=== PATIENT | male | born 1995 | race African-American/Black ===

== ENCOUNTER 2019-08-04 14:56 | Inpatient (IN) ==
[2019-08-04] MEDS ORDERED: ONDANSETRON 4 MG/2 ML VIAL IV STA (15:24)
[2019-08-04] MEDS ORDERED: MORPHINE 4 MG/1 ML VIAL IV STA (15:24)
[2019-08-04] MEDS ORDERED: METOCLOPRAMIDE 10 MG/2 ML VIAL IV STA (15:24)
[2019-08-04] MEDS ORDERED: PANTOPRAZOLE 40 MG VIAL IV STA (15:24)
[2019-08-04] MEDS ORDERED: SODIUM CHLORIDE 0.9% 1,000 ML IV STA (15:24)
[2019-08-04 15:39] LABS: Apearance,Urine CLEAR (Clear); Bilirubin,Urine Negative (Negative); Blood, Urine Small mg/dL (Negative); Glucose,Urine (UA) Negative (Negative); Ketones,Urine 80 mg/dL (Negative); Mucus,Urine Many /LPF (Occasional); Nitrite,Urine Negative (Negative); Protein,Urine 30 MG/DL; RBC,Urine 1 /HPF (0-4); Squamous Epithelial Cell,Urine Occasional /HPF (0-10); Urine Color Yellow (Yellow); Urine Specific Gravity 1.025 (1.001-1.035); WBC,Urine 2 /HPF (0-6)
[2019-08-04 15:41] LABS: Basophils % 0.1 % (0.0-0.8); Eosinophils % 0.1 % (0.00-10.9); Hematocrit 48.6 VOL% (42.0-52.0); Hemoglobin 15.9 GM/DL (14.0-18.0); Immature Granulocytes % 0.5 %; Immature Granulocytes Absolute 0.07 #; Lymphocytes # 1.4 10*3/uL (1.4-4.0); Lymphocytes % 9.4 % (21.2-54.2); Mean Corpuscular HGB Conc 32.7 GM/DL (32-36); Mean Platelet Volume 9.8 FL (9.6-12.0); Monocytes % 5.8 % (1.7-12.7); Neutrophils % 84.1 % (38.7-73.9); Platelet Count 240 T/CUMM (130-400); Red Blood Count 5.34 MC/CUMM (3.8-5.5); Red Cell Distribution Width 12.2 % (9.3-17.3); White Blood Count 14.8 T/CUMM (4-12)
[2019-08-04 15:41] LABS: Barbiturates Screen,Urine Negative (Negative); Benzodiazepines Screen,Urine Negative (Negative); Cannabinoid Screen,Urine Positive (Negative); Opiate Screen,Urine Negative (Negative); Phencyclidine Screen,Urine Negative (Negative)
[2019-08-04 16:13] LABS: Albumin 4.6 G/DL (3.4-5.0); Calcium 9.6 MG/DL (8.5-10.1); Osmolality,Calculated 275.7 MOS/KG (273-304); Total Protein 8.7 G/DL (6.4-8.3)
[2019-08-04] MEDS ORDERED: PIPERACILLIN/TAZOBACTAM 3,375 MG in SODIUM CHLORIDE 0.9% 100 ML IV STA (16:52)
[2019-08-04] MEDS ORDERED: MORPHINE 4 MG/1 ML VIAL IV PRN (18:09)
[2019-08-04] MEDS ORDERED: ONDANSETRON 4 MG/2 ML VIAL IV PRN (18:10)
[2019-08-04] MEDS: MORPHINE 4 MG/1 ML VIAL IV PRN (21:19)
[2019-08-04] MEDS: SODIUM CHLORIDE 0.9% 1,000 ML IV SCH (21:20)
[2019-08-05] MEDS: SODIUM CHLORIDE 0.9% 1,000 ML IV SCH ×7 (00:12→21:31)
[2019-08-05] MEDS: MORPHINE 4 MG/1 ML VIAL IV PRN ×5 (02:45→22:07)
[2019-08-05 06:07] LABS: Basophils % 0.3 % (0.0-0.8); Eosinophils # 0.2 10*3/uL (0.0-0.87); Eosinophils % 1.8 % (0.00-10.9); Hematocrit 38.3 VOL% (42.0-52.0); Hemoglobin 12.1 GM/DL (14.0-18.0); Immature Granulocytes % 0.3 %; Immature Granulocytes Absolute 0.03 #; Mean Corpuscular HGB Conc 31.6 GM/DL (32-36); Mean Corpuscular Volume 93.9 FL (87-102); Mean Platelet Volume 10.1 FL (9.6-12.0); Monocytes % 8.9 % (1.7-12.7); Neutrophils % 59.7 % (38.7-73.9); Platelet Count 176 T/CUMM (130-400); Red Blood Count 4.08 MC/CUMM (3.8-5.5); Red Cell Distribution Width 12.2 % (9.3-17.3); White Blood Count 10.3 T/CUMM (4-12)
[2019-08-05 06:37] LABS: Albumin 3.2 G/DL (3.4-5.0); Bilirubin,Total 0.8 MG/DL (0.2-1.0); Calcium 8.2 MG/DL (8.5-10.1); Osmolality,Calculated 272.8 MOS/KG (273-304); Total Protein 6.5 G/DL (6.4-8.3)
[2019-08-05] MEDS ORDERED: PANTOPRAZOLE 40 MG VIAL IV SCH (09:00)
[2019-08-06] MEDS: MORPHINE 4 MG/1 ML VIAL IV PRN (03:09)
[2019-08-06] MEDS: SODIUM CHLORIDE 0.9% 1,000 ML IV SCH ×2 (03:09→05:18)
[2019-08-06 05:10] LABS: Basophils % 0.4 % (0.0-0.8); Eosinophils # 0.2 10*3/uL (0.0-0.87); Eosinophils % 2.2 % (0.00-10.9); Hemoglobin 10.8 GM/DL (14.0-18.0); Immature Granulocytes % 0.3 %; Immature Granulocytes Absolute 0.02 #; Lymphocytes # 2.9 10*3/uL (1.4-4.0); Mean Corpuscular HGB Conc 31.8 GM/DL (32-36); Mean Corpuscular Volume 95.5 FL (87-102); Mean Platelet Volume 9.8 FL (9.6-12.0); Monocytes % 6.7 % (1.7-12.7); Neutrophils % 47.4 % (38.7-73.9); Platelet Count 144 T/CUMM (130-400); Red Blood Count 3.56 MC/CUMM (3.8-5.5); White Blood Count 6.8 T/CUMM (4-12)
[2019-08-06 05:33] LABS: Calcium 7.8 MG/DL (8.5-10.1); Osmolality,Calculated 277.3 MOS/KG (273-304)
[2019-08-06 09:01] VITALS: BP 130/89
== END 2019-08-06 14:52 | disposition home or self-care (01) | DRG 440 ==
LOC: N.ED 14:56 → N.EDINP 19:42 → N.3E 20:26
PROVIDERS: ADMIT Internal Medicine; ATTEND Internal Medicine

== ENCOUNTER 2019-09-29 10:33 | Inpatient (IN) ==
[2019-09-29] MEDS ORDERED: SODIUM CHLORIDE 0.9% 1,000 ML IV STA (10:48)
[2019-09-29] MEDS ORDERED: HYDROmorphone 2 MG/1 ML VIAL IV STA (10:48)
[2019-09-29] MEDS ORDERED: ONDANSETRON 4 MG/2 ML VIAL IV STA (10:48)
[2019-09-29 11:48] LABS: Basophils % 0.2 % (0.0-0.8); Eosinophils # 0.1 10*3/uL (0.0-0.87); Eosinophils % 0.3 % (0.00-10.9); Hematocrit 46.4 VOL% (42.0-52.0); Hemoglobin 15.6 GM/DL (14.0-18.0); Immature Granulocytes % 0.3 %; Immature Granulocytes Absolute 0.05 #; Lymphocytes # 2.2 10*3/uL (1.4-4.0); Mean Corpuscular HGB Conc 33.6 GM/DL (32-36); Mean Corpuscular Volume 88.7 FL (87-102); Monocytes % 6.3 % (1.7-12.7); Neutrophils % 77.9 % (38.7-73.9); Platelet Count 224 T/CUMM (130-400); Red Blood Count 5.23 MC/CUMM (3.8-5.5); Red Cell Distribution Width 12.2 % (9.3-17.3); White Blood Count 14.6 T/CUMM (4-12)
[2019-09-29 12:13] LABS: Albumin 4.2 G/DL (3.4-5.0); Bilirubin,Total 0.7 MG/DL (0.2-1.0); Calcium 9.8 MG/DL (8.5-10.1); Osmolality,Calculated 269.2 MOS/KG (273-304); Total Protein 8.8 G/DL (6.4-8.3)
[2019-09-29 12:42] LABS: Barbiturates Screen,Urine Negative (Negative); Benzodiazepines Screen,Urine Negative (Negative); Cannabinoid Screen,Urine Positive (Negative); Opiate Screen,Urine Positive (Negative); Phencyclidine Screen,Urine Negative (Negative)
[2019-09-29] MEDS ORDERED: NICOTINE 21 MG/24 HR PATCH TRANSDERM PRN (13:44)
[2019-09-29] MEDS ORDERED: DEXTROSE 10% 250 ML BAG IV PRN (13:44)
[2019-09-29] MEDS ORDERED: ONDANSETRON 4 MG/2 ML VIAL IV PRN (13:44)
[2019-09-29] MEDS ORDERED: GLUCAGON 1 MG VIAL IM PRN (13:44)
[2019-09-29] MEDS: MORPHINE 4 MG/1 ML VIAL IV PRN ×2 (18:12→22:54)
[2019-09-29] MEDS: LACTATED RINGERS 1,000 ML IV SCH (18:12)
[2019-09-29] MEDS: FAMOTIDINE 20 MG/2 ML VIAL IV SCH (22:57)
[2019-09-30] MEDS: LACTATED RINGERS 1,000 ML IV SCH ×3 (02:40→18:43)
[2019-09-30] MEDS: MORPHINE 4 MG/1 ML VIAL IV PRN ×5 (04:34→23:01)
[2019-09-30 04:50] LABS: Basophils % 0.3 % (0.0-0.8); Eosinophils # 0.2 10*3/uL (0.0-0.87); Eosinophils % 1.6 % (0.00-10.9); Hematocrit 43.6 VOL% (42.0-52.0); Immature Granulocytes % 0.2 %; Immature Granulocytes Absolute 0.02 #; Lymphocytes # 2.6 10*3/uL (1.4-4.0); Lymphocytes % 27.2 % (21.2-54.2); Mean Corpuscular HGB Conc 32.1 GM/DL (32-36); Mean Platelet Volume 9.9 FL (9.6-12.0); Monocytes % 7.7 % (1.7-12.7); Platelet Count 190 T/CUMM (130-400); Red Blood Count 4.69 MC/CUMM (3.8-5.5); Red Cell Distribution Width 12.3 % (9.3-17.3); White Blood Count 9.5 T/CUMM (4-12)
[2019-09-30 05:14] LABS: Calcium 9.4 MG/DL (8.5-10.1); Osmolality,Calculated 267.2 MOS/KG (273-304)
[2019-09-30] MEDS: FAMOTIDINE 20 MG/2 ML VIAL IV SCH ×2 (09:09→21:20)
[2019-09-30] MEDS: THIAMINE 200 MG/2 ML VIAL IV SCH (09:09)
[2019-10-01] MEDS: LACTATED RINGERS 1,000 ML IV SCH ×3 (02:55→20:00)
[2019-10-01] MEDS: MORPHINE 4 MG/1 ML VIAL IV PRN ×3 (03:48→13:31)
[2019-10-01] MEDS: THIAMINE 200 MG/2 ML VIAL IV SCH (09:18)
[2019-10-01] MEDS: FAMOTIDINE 20 MG/2 ML VIAL IV SCH ×2 (09:18→22:05)
[2019-10-01] MEDS ORDERED: MORPHINE 4 MG/1 ML VIAL IV PRN (11:06)
[2019-10-01] MEDS ORDERED: LORazepam 2 MG/1 ML VIAL IV PRN (12:04)
[2019-10-02] MEDS: MORPHINE 4 MG/1 ML VIAL IV PRN ×3 (00:40→07:35)
[2019-10-02] MEDS: LACTATED RINGERS 1,000 ML IV SCH ×2 (04:00→12:45)
[2019-10-02 06:24] LABS: Basophils % 0.4 % (0.0-0.8); Eosinophils # 0.1 10*3/uL (0.0-0.87); Hematocrit 36.5 VOL% (42.0-52.0); Hemoglobin 12.1 GM/DL (14.0-18.0); Immature Granulocytes % 0.3 %; Immature Granulocytes Absolute 0.02 #; Lymphocytes # 1.8 10*3/uL (1.4-4.0); Lymphocytes % 25.6 % (21.2-54.2); Mean Corpuscular HGB Conc 33.2 GM/DL (32-36); Mean Corpuscular Volume 90.1 FL (87-102); Mean Platelet Volume 10.4 FL (9.6-12.0); Monocytes % 8.7 % (1.7-12.7); Platelet Count 163 T/CUMM (130-400); Red Blood Count 4.05 MC/CUMM (3.8-5.5); Red Cell Distribution Width 11.8 % (9.3-17.3)
[2019-10-02 06:53] LABS: Albumin 3.1 G/DL (3.4-5.0); Bilirubin,Total 0.7 MG/DL (0.2-1.0); Calcium 9.1 MG/DL (8.5-10.1); Total Protein 6.6 G/DL (6.4-8.3)
[2019-10-02 08:04] VITALS: BP 139/81
[2019-10-02] MEDS: FAMOTIDINE 20 MG/2 ML VIAL IV SCH (09:22)
[2019-10-02] MEDS: THIAMINE 200 MG/2 ML VIAL IV SCH (09:25)
[2019-10-02] MEDS ORDERED: LORazepam 2 MG/1 ML VIAL IV ONE (10:00)
[2019-10-02] MEDS ORDERED: diphenhydrAMINE 50 MG/1 ML VIAL IV ONE (10:00)
== END 2019-10-02 15:08 | disposition home or self-care (01) | DRG 440 ==
LOC: N.ED 10:33 → SUATTDRO 13:44 → N.EDINP 13:44 → N.3E 15:41
PROVIDERS: ADMIT Family Medicine; ATTEND Internal Medicine

== ENCOUNTER 2019-12-10 09:13 | Inpatient (IN) ==
[2019-12-10] MEDS ORDERED: MORPHINE 4 MG/1 ML VIAL IV ONE (09:34)
[2019-12-10] MEDS ORDERED: ONDANSETRON 4 MG/2 ML VIAL IV ONE ×2 (09:34→11:09)
[2019-12-10] MEDS ORDERED: SODIUM CHLORIDE 0.9% 1,000 ML IV STA (09:34)
[2019-12-10 09:47] LABS: Basophils % 0.1 % (0.0-0.8); Eosinophils % 0.3 % (0.00-10.9); Hematocrit 46.5 VOL% (42.0-52.0); Hemoglobin 15.3 GM/DL (14.0-18.0); Immature Granulocytes % 0.4 %; Immature Granulocytes Absolute 0.07 #; Lymphocytes # 1.2 10*3/uL (1.4-4.0); Lymphocytes % 7.7 % (21.2-54.2); Mean Corpuscular HGB Conc 32.9 GM/DL (32-36); Mean Corpuscular Volume 92.6 FL (87-102); Mean Platelet Volume 9.4 FL (9.6-12.0); Monocytes % 5.4 % (1.7-12.7); Neutrophils % 86.1 % (38.7-73.9); Platelet Count 244 T/CUMM (130-400); Red Blood Count 5.02 MC/CUMM (3.8-5.5); Red Cell Distribution Width 11.8 % (9.3-17.3); White Blood Count 15.9 T/CUMM (4-12)
[2019-12-10 09:57] LABS: Apearance,Urine CLEAR (Clear); Bilirubin,Urine Negative (Negative); Blood, Urine Negative (Negative); Glucose,Urine (UA) Negative (Negative); Ketones,Urine 80 mg/dL (Negative); Mucus,Urine Many /LPF (Occasional); Nitrite,Urine Negative (Negative); Protein,Urine 30 MG/DL; RBC,Urine 2 /HPF (0-4); Squamous Epithelial Cell,Urine Occasional /HPF (0-10); Urine Color Amber (Yellow); Urine Specific Gravity 1.031 (1.001-1.035); WBC,Urine 2 /HPF (0-6)
[2019-12-10 09:59] LABS: PT Patient Result 10.7 SECS (9.8-11.9)
[2019-12-10 10:11] LABS: Alanine Aminotransferase 14 U/L (16-61); Albumin 4.1 G/DL (3.4-5.0); Alkaline Phosphatase 77 U/L (45-117); Aspartate Amino Transferase 10 U/L (0-37); Blood Urea Nitrogen 11 MG/DL (7-18); Calcium 9.5 MG/DL (8.5-10.1); Estimated Glom Filtration Rate 136 ML/MIN; Glucose 98 MG/DL (74-106); Osmolality,Calculated 268.1 MOS/KG (273-304); Total Protein 8.1 G/DL (6.4-8.3)
[2019-12-10 10:18] LABS: Barbiturates Screen,Urine Negative (Negative); Benzodiazepines Screen,Urine Negative (Negative); Cannabinoid Screen,Urine Positive (Negative); Opiate Screen,Urine Positive (Negative); Phencyclidine Screen,Urine Negative (Negative)
[2019-12-10] MEDS ORDERED: HYDROmorphone 2 MG/1 ML VIAL IV STA (11:09)
[2019-12-10] MEDS ORDERED: HYDROmorphone 2 MG/1 ML VIAL ONE (11:10)
[2019-12-10] MEDS ORDERED: ONDANSETRON 4 MG/2 ML VIAL IV PRN (11:37)
[2019-12-10] MEDS ORDERED: hydrALAZINE 20 MG/1 ML VIAL IV PRN (11:37)
[2019-12-10] MEDS ORDERED: GLUCAGON 1 MG VIAL IM PRN (11:37)
[2019-12-10] MEDS ORDERED: DEXTROSE 10% 250 ML BAG IV PRN (11:37)
[2019-12-10] MEDS ORDERED: DOCUSATE SODIUM 100 MG CAPSULE PO PRN (11:37)
[2019-12-10] MEDS ORDERED: ACETAMINOPHEN 325 MG TABLET PO PRN (11:37)
[2019-12-10] MEDS ORDERED: LORazepam 2 MG/1 ML VIAL IV PRN (12:00)
[2019-12-10] MEDS ORDERED: THIAMINE INJ 100 MG, FOLIC ACID INJ 1 MG, MULTIVITAMIN INJ 10 ML in SODIUM CHLORIDE 0.9... IV ONE (12:30)
[2019-12-10] MEDS: HYDROmorphone 2 MG/1 ML VIAL IV PRN ×3 (13:33→22:53)
[2019-12-10] MEDS: DEXTROSE 5% NACL 0.45% 1,000 ML IV SCH (16:45)
[2019-12-11] MEDS: DEXTROSE 5% NACL 0.45% 1,000 ML IV SCH ×3 (00:43→13:12)
[2019-12-11] MEDS: HYDROmorphone 2 MG/1 ML VIAL IV PRN ×5 (03:13→22:30)
[2019-12-11 06:08] LABS: Basophils % 0.3 % (0.0-0.8); Eosinophils # 0.2 10*3/uL (0.0-0.87); Eosinophils % 1.8 % (0.00-10.9); Hematocrit 39.7 VOL% (42.0-52.0); Hemoglobin 12.7 GM/DL (14.0-18.0); Immature Granulocytes % 0.3 %; Immature Granulocytes Absolute 0.03 #; Lymphocytes # 2.3 10*3/uL (1.4-4.0); Lymphocytes % 23.1 % (21.2-54.2); Mean Corpuscular Volume 93.9 FL (87-102); Mean Platelet Volume 9.9 FL (9.6-12.0); Monocytes % 7.2 % (1.7-12.7); Neutrophils % 67.3 % (38.7-73.9); Platelet Count 188 T/CUMM (130-400); Red Blood Count 4.23 MC/CUMM (3.8-5.5); Red Cell Distribution Width 11.9 % (9.3-17.3); White Blood Count 10.1 T/CUMM (4-12)
[2019-12-11 06:57] LABS: Albumin 3.1 G/DL (3.4-5.0); Bilirubin,Total 0.4 MG/DL (0.2-1.0); Calcium 8.6 MG/DL (8.5-10.1); Risk Ratio 1.76; Thyroid Stimulating Hormone 2.33 uIU/ml (0.358-3.74); Total Protein 6.2 G/DL (6.4-8.3); VLDL CHOLESTEROL 16.6 MG/DL
[2019-12-11 07:32] LABS: Folate 9.2 NG/ML (5.4-24.0)
[2019-12-11] MEDS: THIAMINE 100 MG TABLET PO SCH (08:15)
[2019-12-11] MEDS: MULTIVITAMIN (CENTRUM) TABLET PO SCH (08:15)
[2019-12-11] MEDS: FOLIC ACID 1 MG TABLET PO SCH (08:15)
[2019-12-11] MEDS ORDERED: ENOXAPARIN 40 MG/0.4 ML SYRINGE SUBCUT SCH (12:00)
[2019-12-12] MEDS: HYDROmorphone 2 MG/1 ML VIAL IV PRN (03:15)
[2019-12-12] MEDS: DEXTROSE 5% NACL 0.45% 1,000 ML IV SCH ×2 (03:49→04:18)
[2019-12-12 05:07] LABS: Basophils % 0.5 % (0.0-0.8); Eosinophils # 0.2 10*3/uL (0.0-0.87); Eosinophils % 3.1 % (0.00-10.9); Hematocrit 37.8 VOL% (42.0-52.0); Hemoglobin 12.1 GM/DL (14.0-18.0); Immature Granulocytes % 0.1 %; Immature Granulocytes Absolute 0.01 #; Lymphocytes # 2.5 10*3/uL (1.4-4.0); Mean Corpuscular Volume 93.6 FL (87-102); Mean Platelet Volume 9.7 FL (9.6-12.0); Monocytes % 8.3 % (1.7-12.7); Platelet Count 178 T/CUMM (130-400); Red Blood Count 4.04 MC/CUMM (3.8-5.5); Red Cell Distribution Width 11.8 % (9.3-17.3); White Blood Count 7.7 T/CUMM (4-12)
[2019-12-12 05:29] LABS: Bilirubin,Total 0.8 MG/DL (0.2-1.0); Calcium 8.6 MG/DL (8.5-10.1); Total Protein 6.2 G/DL (6.4-8.3)
[2019-12-12 07:50] VITALS: BP 126/74
[2019-12-12] MEDS: MULTIVITAMIN (CENTRUM) TABLET PO SCH (08:19)
[2019-12-12] MEDS: FOLIC ACID 1 MG TABLET PO SCH (08:19)
[2019-12-12] MEDS: THIAMINE 100 MG TABLET PO SCH (08:19)
== END 2019-12-12 11:35 | disposition home or self-care (01) | DRG 439 ==
LOC: N.ED 09:13 → N.EDINP 11:37 → N.3E 14:21
PROVIDERS: ADMIT Hospitalist; ATTEND Hospitalist

== ENCOUNTER 2020-04-25 20:57 | Inpatient (IN) ==
[2020-04-25] MEDS ORDERED: HYDROmorphone 2 MG/1 ML VIAL IV STA (21:38)
[2020-04-25] MEDS ORDERED: ONDANSETRON 4 MG/2 ML VIAL IV STA (21:38)
[2020-04-25] MEDS ORDERED: SODIUM CHLORIDE 0.9% 1,000 ML IV STA (21:38)
[2020-04-25] MEDS ORDERED: ALUM/MAG/SIMETH/LIDO VISC 1:1 30 ML BOTTLE PO STA (21:38)
[2020-04-25] MEDS ORDERED: PANTOPRAZOLE 40 MG VIAL IV STA (21:38)
[2020-04-25 21:54] LABS: Basophils % 0.2 % (0.0-0.8); Eosinophils # 0.1 10*3/uL (0.0-0.87); Eosinophils % 0.4 % (0.00-10.9); Hematocrit 44.5 VOL% (42.0-52.0); Hemoglobin 14.5 GM/DL (14.0-18.0); Immature Granulocytes % 0.5 %; Immature Granulocytes Absolute 0.07 #; Lymphocytes # 1.3 10*3/uL (1.4-4.0); Lymphocytes % 8.5 % (21.2-54.2); Mean Corpuscular HGB Conc 32.6 GM/DL (32-36); Mean Corpuscular Volume 91.9 FL (87-102); Mean Platelet Volume 9.7 FL (9.6-12.0); Monocytes % 4.8 % (1.7-12.7); Neutrophils % 85.6 % (38.7-73.9); Platelet Count 232 T/CUMM (130-400); Red Blood Count 4.84 MC/CUMM (3.8-5.5); Red Cell Distribution Width 11.8 % (9.3-17.3)
[2020-04-25 22:19] LABS: Alanine Aminotransferase 19 U/L (16-61); Albumin 4.4 G/DL (3.4-5.0); Alkaline Phosphatase 87 U/L (45-117); Amylase 870 U/L (25-115); Aspartate Amino Transferase 10 U/L (0-37); Blood Urea Nitrogen 13 MG/DL (7-18); Calcium 9.9 MG/DL (8.5-10.1); Estimated Glom Filtration Rate 144 ML/MIN; Glucose 109 MG/DL (74-106); Osmolality,Calculated 279.4 MOS/KG (273-304)
[2020-04-26] MEDS ORDERED: ONDANSETRON 4 MG/2 ML VIAL IV PRN (00:16)
[2020-04-26] MEDS ORDERED: DOCUSATE SODIUM 100 MG CAPSULE PO PRN (00:16)
[2020-04-26] MEDS ORDERED: ACETAMINOPHEN 325 MG TABLET PO PRN (00:16)
[2020-04-26] MEDS ORDERED: DEXTROSE 50% 25 GM/50 ML VIAL IV PRN (00:16)
[2020-04-26] MEDS ORDERED: GLUCAGON 1 MG VIAL IM PRN (00:16)
[2020-04-26] MEDS ORDERED: PROMETHAZINE 25 MG/1 ML VIAL IM PRN (00:16)
[2020-04-26] MEDS ORDERED: NICOTINE 21 MG/24 HR PATCH TRANSDERM PRN (00:19)
[2020-04-26] MEDS ORDERED: LORazepam 2 MG/1 ML VIAL IV PRN (00:44)
[2020-04-26] MEDS: SODIUM CHLORIDE 0.9% 1,000 ML IV SCH ×2 (01:53→12:19)
[2020-04-26] MEDS: ENOXAPARIN 40 MG/0.4 ML SYRINGE SUBCUT SCH ×2 (01:53→23:47)
[2020-04-26] MEDS: HYDROmorphone 2 MG/1 ML VIAL IV PRN ×6 (02:03→23:54)
[2020-04-26 05:50] LABS: Basophils % 0.3 % (0.0-0.8); Eosinophils # 0.1 10*3/uL (0.0-0.87); Hematocrit 40.9 VOL% (42.0-52.0); Hemoglobin 13.6 GM/DL (14.0-18.0); Immature Granulocytes % 0.4 %; Immature Granulocytes Absolute 0.05 #; Lymphocytes # 2.9 10*3/uL (1.4-4.0); Lymphocytes % 23.3 % (21.2-54.2); Mean Corpuscular HGB Conc 33.3 GM/DL (32-36); Mean Corpuscular Volume 91.7 FL (87-102); Mean Platelet Volume 9.7 FL (9.6-12.0); Monocytes % 8.2 % (1.7-12.7); Neutrophils % 66.8 % (38.7-73.9); Platelet Count 220 T/CUMM (130-400); Red Blood Count 4.46 MC/CUMM (3.8-5.5); Red Cell Distribution Width 11.8 % (9.3-17.3); White Blood Count 12.4 T/CUMM (4-12)
[2020-04-26 06:05] LABS: Albumin 3.6 G/DL (3.4-5.0); Bilirubin,Total 0.4 MG/DL (0.2-1.0); Calcium 9.1 MG/DL (8.5-10.1); Osmolality,Calculated 276.4 MOS/KG (273-304); Risk Ratio 1.82; Total Protein 7.3 G/DL (6.4-8.3); VLDL CHOLESTEROL 15.4 MG/DL
[2020-04-26 06:39] LABS: Bilirubin,Urine Negative (Negative); Blood, Urine Negative (Negative); Glucose,Urine (UA) Negative (Negative); Ketones,Urine 80 mg/dL (Negative); Nitrite,Urine Negative (Negative); Protein,Urine Negative; RBC,Urine 10 /HPF (0-4); Squamous Epithelial Cell,Urine Occasional /HPF (0-10); Urine Appearance CLEAR (Clear); Urine Color Yellow (Yellow); WBC,Urine 16 /HPF (0-6)
[2020-04-26] MEDS ORDERED: MULTIVITAMIN INJ 10 ML in SODIUM CHLORIDE 0.9% 1,000 ML IV SCH (15:00)
[2020-04-26] MEDS: LACTATED RINGERS 1,000 ML IV SCH ×2 (16:54→23:46)
[2020-04-26] MEDS: FOLIC ACID 0.4 MG TABLET PO SCH (16:54)
[2020-04-26 17:47] LABS: Barbiturates Screen,Urine Negative (Negative); Benzodiazepines Screen,Urine Negative (Negative); Cannabinoid Screen,Urine Positive (Negative); Opiate Screen,Urine Positive (Negative); Phencyclidine Screen,Urine Negative (Negative)
[2020-04-27] MEDS: HYDROmorphone 2 MG/1 ML VIAL IV PRN ×4 (03:40→16:08)
[2020-04-27] MEDS: SODIUM CHLORIDE IV SCH ×3 (04:30→16:45)
[2020-04-27] MEDS: LACTATED RINGERS MULTIVITAMIN IV SCH ×3 (04:30→16:45)
[2020-04-27 06:21] LABS: Basophils % 0.4 % (0.0-0.8); Eosinophils # 0.1 10*3/uL (0.0-0.87); Eosinophils % 1.3 % (0.00-10.9); Hemoglobin 12.6 GM/DL (14.0-18.0); Immature Granulocytes % 0.3 %; Immature Granulocytes Absolute 0.03 #; Lymphocytes # 1.8 10*3/uL (1.4-4.0); Lymphocytes % 18.6 % (21.2-54.2); Mean Corpuscular HGB Conc 32.3 GM/DL (32-36); Mean Corpuscular Volume 93.5 FL (87-102); Mean Platelet Volume 10.3 FL (9.6-12.0); Monocytes % 7.2 % (1.7-12.7); Neutrophils % 72.2 % (38.7-73.9); Platelet Count 180 T/CUMM (130-400); Red Blood Count 4.17 MC/CUMM (3.8-5.5); Red Cell Distribution Width 11.9 % (9.3-17.3); White Blood Count 9.7 T/CUMM (4-12)
[2020-04-27 06:25] LABS: Albumin 3.5 G/DL (3.4-5.0); Bilirubin,Total 0.6 MG/DL (0.2-1.0); Calcium 8.9 MG/DL (8.5-10.1); Osmolality,Calculated 268.8 MOS/KG (273-304)
[2020-04-27] MEDS: FOLIC ACID 0.4 MG TABLET PO SCH (08:18)
[2020-04-27] MEDS: THIAMINE 200 MG/2 ML VIAL IV SCH (08:18)
[2020-04-28] MEDS: HYDROmorphone 2 MG/1 ML VIAL IV PRN ×2 (00:02→06:12)
[2020-04-28] MEDS: ENOXAPARIN 40 MG/0.4 ML SYRINGE SUBCUT SCH (00:06)
[2020-04-28 06:33] LABS: Basophils % 0.4 % (0.0-0.8); Eosinophils # 0.2 10*3/uL (0.0-0.87); Eosinophils % 1.9 % (0.00-10.9); Hematocrit 37.6 VOL% (42.0-52.0); Hemoglobin 12.5 GM/DL (14.0-18.0); Immature Granulocytes % 0.4 %; Immature Granulocytes Absolute 0.03 #; Lymphocytes # 1.8 10*3/uL (1.4-4.0); Lymphocytes % 22.8 % (21.2-54.2); Mean Corpuscular HGB Conc 33.2 GM/DL (32-36); Mean Corpuscular Volume 92.2 FL (87-102); Mean Platelet Volume 9.4 FL (9.6-12.0); Monocytes % 8.5 % (1.7-12.7); Platelet Count 198 T/CUMM (130-400); Red Blood Count 4.08 MC/CUMM (3.8-5.5); Red Cell Distribution Width 11.7 % (9.3-17.3)
[2020-04-28 07:08] LABS: Osmolality,Calculated 266.1 MOS/KG (273-304)
[2020-04-28] MEDS: FOLIC ACID 0.4 MG TABLET PO SCH (08:40)
[2020-04-28] MEDS: THIAMINE 200 MG/2 ML VIAL IV SCH (08:41)
[2020-04-28] MEDS: SODIUM CHLORIDE IV SCH ×2 (08:43→10:07)
[2020-04-28] MEDS: LACTATED RINGERS MULTIVITAMIN IV SCH ×2 (08:43→10:07)
[2020-04-28] MEDS: LACTATED RINGERS 1,000 ML IV SCH (09:39)
[2020-04-28 12:55] VITALS: BP 133/75
== END 2020-04-28 13:28 | disposition home or self-care (01) | DRG 439 ==
LOC: N.ED 20:57 → N.EDINP 23:50 → N.3E 04-26 01:00
PROVIDERS: ADMIT Internal Medicine; ATTEND Internal Medicine